=== PATIENT | male | born 1945 | race Caucasian/White ===

== ENCOUNTER 2017-06-15 10:13 | Day surgery (SDC) | payer MEDICARE ==
[~2017-06-15 10:13] MED LIST: AMOCLA875 PO; ASCO500 PO; ASPI81CH PO; BUPR75; CEPH500 PO; CIPR500; CIPR500 PO; Calcium +D & M1 EACH PO; DAYQUIL; DICMIS75EC; DIPATR PO; ETOD200; GLUCOSAMINE-CH1 EA16 PO; HYDACE5 PO; Hair, Skin & N1 EACH PO; LEVFLO500 PO; LEVSOD50 PO; LISI20 PO; MULVITMIND PO; NAPR220 PO; ONDA4 PO; OXYACE5T PO; PHENA100 PO; PROACE100; PROM25 PO; RXONDA4ODT MM; RXOXYACE PO; SYNTHROID; TAMS.4ER PO; TYLENOL
[2017-06-16 05:31] LABS: BASOPHILS ABSOLUTE AUTO 0.01 K/mm3 (0.00-0.23); BASOPHILS PERCENT AUTO 0 % (0-2); EOSINOPHILS PERCENT AUTO 0 % (0-6); Hemoglobin 13.3 g/dL (13.5-17.5); IMMATURE GRAN ABSOLUTE AUTO 0.09 K/mm3 (0.00-0.10); IMMATURE GRAN PERCENT AUTO 1 % (0-1); LYMPHOCYTES ABSOLUTE AUTO 1.51 K/mm3 (0.84-5.20); LYMPHOCYTES PERCENT AUTO 10 % (21-46); MONOCYTES ABSOLUTE AUTO 0.99 K/mm3 (0.16-1.47); MONOCYTES PERCENT AUTO 7 % (4-13); Mean Corpuscular HGB 30.2 pg (26.0-34.0); Mean Corpuscular HGB Conc 33.3 g/dL (31.5-36.5); Mean Corpuscular Volume 91 fL (80-100); Mean Platelet Volume 12.3 fL (9.1-12.4); NEUTROPHILS ABSOLUTE AUTO 11.99 K/mm3 (1.96-9.15); NEUTROPHILS PERCENT AUTO 82 % (41-73); Platelet Count 137 K/mm3 (150-400); RDW Coefficient Variation 12.4 % (11.7-14.2); RDW Standard Deviation 41.1 fL (35.1-46.3); White Blood Cell Count 14.59 K/mm3 (4.00-11.30)
[2017-06-16 05:57] LABS: Anion Gap 9 mmol/L (6-16); Blood Urea Nitrogen 29 mg/dL (8-24); Bun/Creatinine Ratio 23.8 (12.0-20.0); CO2, Blood 25 mmol/L (21-32); Calcium, Blood 8.4 mg/dL (8.5-10.1); Chloride, Blood 107 mmol/L (98-108); Creatinine, Blood 1.22 mg/dL (0.60-1.20); Glomerular Filtration Rate >60 (60-); Glucose, Blood 127 mg/dL (70-99); Magnesium, Blood 2.1 mg/dL (1.6-2.4); Potassium, Blood 4.9 mmol/L (3.5-5.5); Sodium, Blood 141 mmol/L (136-145)
[2017-06-16] MEDS ORDERED: ENOX40I SC ×2 (09:31→15:18)
[2017-06-16] MEDS ORDERED: PROM25 PO (09:31)
[2017-06-16] MEDS ORDERED: OXYC5 PO (09:31)
[2017-06-16] MEDS ORDERED: Percocet 5-3251 EACH PO (14:23)
== END 2017-06-16 15:49 | disposition home or self-care (01) ==
LOC: SURS 10:13 → ORSCMMR 10:13 → PRE IP 10:13 → EDSTATUS 14:30 → PRE IP 14:30 → SURS 17:19 → ORSCMMR 06-16 15:49
PROVIDERS: Orthopaedic Surgery
PROC: 0SRD0J9 Replacement of Left Knee Joint with Synthetic Substitute, Cemented, Open Approach (ICD-10-PCS; principal; 2017-06-15 14:30)
DX: M17.12 Unilateral primary osteoarthritis, left knee (principal); I10 Essential (primary) hypertension; E03.9 Hypothyroidism, unspecified; Z79.899 Other long term (current) drug therapy; Z79.82 Long term (current) use of aspirin; E66.01 Morbid (severe) obesity due to excess calories; Z68.35 Body mass index [BMI] 35.0-35.9, adult
CPT/HCPCS: 36415; 73560-LT; 80048; 82947; 83735; 85025; 86850; 86900; 86901; 88300; 97110; 97116; 97161; 97530; C1713; C1776; G8978; G8979; J0171; J0690; J0735; J1100; J1170; J1650; J1885; J2250; J2405; J2795; J3370; J7120

== ENCOUNTER → 2019-05-18 | Outpatient (CLI) | payer MEDICARE, OTHER ==
[~2019-05-18] MED LIST changes: +ENOX40I SC; +OXYC5 PO; +Percocet 5-3251 EACH PO
== END | disposition home or self-care (01) ==
LOC: LAB SHORT 10:52 → OLS 10:52
PROVIDERS: Internal Medicine
DX: Z00.01 Encounter for general adult medical examination with abnormal findings (principal)
CPT/HCPCS: 81050

== ENCOUNTER → 2020-10-07 | Outpatient (CLI) | payer MEDICARE, OTHER ==
[2020-10-07 16:24] LABS: BASOPHILS ABSOLUTE AUTO 0.04 K/mm3 (0.00-0.23); BASOPHILS PERCENT AUTO 1 % (0-2); EOSINOPHILS ABSOLUTE AUTO 0.31 K/mm3 (0.00-0.68); EOSINOPHILS PERCENT AUTO 4 % (0-6); Hematocrit 47.2 % (37.0-53.0); Hemoglobin 15.7 g/dL (13.5-17.5); IMMATURE GRAN ABSOLUTE AUTO 0.02 K/mm3 (0.00-0.10); IMMATURE GRAN PERCENT AUTO 0 % (0-1); LYMPHOCYTES ABSOLUTE AUTO 1.84 K/mm3 (0.84-5.20); LYMPHOCYTES PERCENT AUTO 21 % (21-46); MONOCYTES ABSOLUTE AUTO 0.58 K/mm3 (0.16-1.47); MONOCYTES PERCENT AUTO 7 % (4-13); Mean Corpuscular HGB 30.6 pg (26.0-34.0); Mean Corpuscular HGB Conc 33.3 g/dL (31.5-36.5); Mean Corpuscular Volume 92 fL (80-100); Mean Platelet Volume 11.6 fL (9.1-12.4); NEUTROPHILS ABSOLUTE AUTO 5.81 K/mm3 (1.96-9.15); NEUTROPHILS PERCENT AUTO 68 % (41-73); Platelet Count 188 K/mm3 (150-400); RDW Coefficient Variation 12.6 % (11.7-14.2); RDW Standard Deviation 42.3 fL (35.1-46.3); Red Blood Cell Count 5.13 M/mm3 (4.30-5.90)
[2020-10-07 16:36] LABS: Albumin, Blood 3.8 g/dL (3.4-5.0); Albumin/Globulin Ratio 1.2 (0.8-1.8); Bilirubin, Total 0.3 mg/dL (0.1-1.0); Calcium, Blood 9.1 mg/dL (8.5-10.1); Creatinine, Blood 1.27 mg/dL (0.60-1.20); Globulin, Blood 3.3 g/dL (2.2-4.0); Potassium, Blood 4.2 mmol/L (3.5-5.5); Total Protein, Blood 7.1 g/dL (6.4-8.2)
== END | disposition home or self-care (01) ==
LOC: LAB SHORT 16:21 → LAB 16:21
PROVIDERS: Physician Assistant
DX: R10.32 Left lower quadrant pain (principal)
CPT/HCPCS: 80053; 85025

== ENCOUNTER → 2021-03-31 | Outpatient (CLI) | payer MEDICARE, OTHER ==
[2021-03-31 15:07] LABS: Adenovirus F 40/41 Not Detected (NOT DETECT); Astrovirus Not Detected (NOT DETECT); Campylobacter Sp Not Detected (NOT DETECT); Cryptosporidium Not Detected (NOT DETECT); Cyclospora Cayetanensis Not Detected (NOT DETECT); E. Coli O157 Not Detected (NOT DETECT); Entamoeba Histolytica Not Detected (NOT DETECT); Enteroaggregative E. coli-EAEC Not Detected (NOT DETECT); Enteropathogenic E. coli-EPEC Not Detected (NOT DETECT); Enterotoxigenic E. coli-ETEC Not Detected (NOT DETECT); Giardia Lamblia Not Detected (NOT DETECT); Norovirus GI/GII Not Detected (NOT DETECT); Plesiomonas Shigelloides Not Detected (NOT DETECT); Rotavirus A Not Detected (NOT DETECT); Salmonella Sp Not Detected (NOT DETECT); Sapovirus Not Detected (NOT DETECT); Shiga Toxin-prod E. coli-STEC Not Detected (NOT DETECT); Shigella/Enteroin E. coli-EIEC Not Detected (NOT DETECT); Vibrio Cholerae Not Detected (NOT DETECT); Vibrio Sp Not Detected (NOT DETECT); Yersinia Enterocolitica Not Detected (NOT DETECT)
== END | disposition home or self-care (01) ==
LOC: LAB SHORT 07:45 → LAB 07:45
PROVIDERS: Physician Assistant Surgical
DX: R19.7 Diarrhea, unspecified (principal)
CPT/HCPCS: 0097U

== ENCOUNTER 2021-06-04 06:23 | Day surgery (SDC) | payer MEDICARE, OTHER ==
[~2021-06-04] VITALS: Ht 177.8 cm; Wt 108.7 kg
--- NOTE | 2021-06-04 08:17 | NUR ---
06/04/21 0817 Tahir Jiang PATIENT DETERMINED TO BE ASA APPROPRIATE FOR PROPOFOL SEDATION PRIOR TO START OF PROCEDURE BY DR. ALFONSO 3-LEAD EKG REVIEWED WITH PHYSICIAN PRIOR TO START OF PROCEDURE. Patient to ENDO 1. History, Chart, Medications and Allergies reviewed before start of procedure. MONITOR INTACT WITH CONTINUOUS PULSE OXIMETRY AND INTERMITTENT BP. O2 VIA N/C INTACT THROUGHOUT SEDATION/PROCEDURE.
--- NOTE | 2021-06-04 09:06 | NUR ---
PT TOLERATING PO FLUIDS AND SOLIDS. PT DENIES PAIN, N/V. RIDE INFORMED OF STATUS.
--- NOTE | 2021-06-04 09:33 | NUR ---
Discharge instructions reviewed with patient. Patient verbalizes understanding. Copy given to patient to take home. Patient States Post-Procedure ride home has been arranged. Discharged via wheelchair to private car for ride home.
== END 2021-06-04 09:36 | disposition home or self-care (01) ==
LOC: ORSCMMR 06:23 → ORD 08:00 → ORSCMMR 08:00
PROVIDERS: Internal Medicine Gastroenterology
PROC: 0DBK8ZX Excision of Ascending Colon, Via Natural or Artificial Opening Endoscopic, Diagnostic (ICD-10-PCS; principal; 2021-06-04 08:00)
PROC: 0DBL8ZX Excision of Transverse Colon, Via Natural or Artificial Opening Endoscopic, Diagnostic (ICD-10-PCS; principal; 2021-06-04 08:00)
PROC: 0DBH8ZX Excision of Cecum, Via Natural or Artificial Opening Endoscopic, Diagnostic (ICD-10-PCS; principal; 2021-06-04 08:00)
PROC: 0DBE8ZX Excision of Large Intestine, Via Natural or Artificial Opening Endoscopic, Diagnostic (ICD-10-PCS; principal; 2021-06-04 08:00)
DX: R19.7 Diarrhea, unspecified (principal); D12.3 Benign neoplasm of transverse colon; D12.0 Benign neoplasm of cecum; D12.2 Benign neoplasm of ascending colon; K57.30 Diverticulosis of large intestine without perforation or abscess without bleeding; K52.89 Other specified noninfective gastroenteritis and colitis; K75.81 Nonalcoholic steatohepatitis (NASH); D51.0 Vitamin B12 deficiency anemia due to intrinsic factor deficiency; E66.9 Obesity, unspecified; Z68.35 Body mass index [BMI] 35.0-35.9, adult; Z79.899 Other long term (current) drug therapy
CPT/HCPCS: 88305; 88313; J2704; J7120

== ENCOUNTER 2021-08-10 09:07 | Emergency (ER) | payer MEDICARE ==
[~2021-08-10] VITALS: Ht 177.8 cm; Wt 108.9 kg
[~2021-08-10 09:07] MED LIST changes: +EUTHYROX175 MCG PO; -LEVSOD50 PO
[2021-08-10 10:41] LABS: BASOPHILS ABSOLUTE AUTO 0.04 K/mm3 (0.00-0.23); BASOPHILS PERCENT AUTO 0 % (0-2); EOSINOPHILS ABSOLUTE AUTO 0.04 K/mm3 (0.00-0.68); EOSINOPHILS PERCENT AUTO 0 % (0-6); Hematocrit 51.6 % (37.0-53.0); Hemoglobin 17.6 g/dL (13.5-17.5); IMMATURE GRAN ABSOLUTE AUTO 0.06 K/mm3 (0.00-0.10); IMMATURE GRAN PERCENT AUTO 1 % (0-1); LYMPHOCYTES ABSOLUTE AUTO 1.72 K/mm3 (0.84-5.20); LYMPHOCYTES PERCENT AUTO 14 % (21-46); MONOCYTES ABSOLUTE AUTO 0.58 K/mm3 (0.16-1.47); MONOCYTES PERCENT AUTO 5 % (4-13); Mean Corpuscular HGB 30.5 pg (26.0-34.0); Mean Corpuscular HGB Conc 34.1 g/dL (31.5-36.5); Mean Corpuscular Volume 89 fL (80-100); Mean Platelet Volume 11.2 fL (9.1-12.4); NEUTROPHILS ABSOLUTE AUTO 9.97 K/mm3 (1.96-9.15); NEUTROPHILS PERCENT AUTO 80 % (41-73); Platelet Count 193 K/mm3 (150-400); RDW Coefficient Variation 12.7 % (11.7-14.2); RDW Standard Deviation 41.3 fL (35.1-46.3); Red Blood Cell Count 5.77 M/mm3 (4.30-5.90); White Blood Cell Count 12.41 K/mm3 (4.00-11.30)
[2021-08-10 11:09] LABS: Alanine Aminotransfer (ALT/SGP 26 U/L (12-78); Albumin, Blood 3.8 g/dL (3.4-5.0); Alk Phos 112 U/L (50-136); Anion Gap 9 mmol/L (6-16); Aspartate Aminotrans (AST/SGOT 20 U/L (12-37); Bilirubin, Total 0.9 mg/dL (0.1-1.0); Blood Urea Nitrogen 19 mg/dL (8-24); CO2, Blood 25 mmol/L (21-32); Calcium, Blood 9.6 mg/dL (8.5-10.1); Chloride, Blood 106 mmol/L (98-108); Creatinine, Blood 0.95 mg/dL (0.60-1.20); Globulin, Blood 3.8 g/dL (2.2-4.0); Glomerular Filtration Rate >60 (60-); Glucose, Blood 160 mg/dL (70-99); Potassium, Blood 3.9 mmol/L (3.5-5.5); Sodium, Blood 140 mmol/L (136-145); Total Protein, Blood 7.6 g/dL (6.4-8.2)
== END 2021-08-10 13:45 | disposition home or self-care (01) ==
LOC: ER 09:07
PROVIDERS: Physician Assistant
DX: R42 Dizziness and giddiness (principal); I10 Essential (primary) hypertension; Z79.899 Other long term (current) drug therapy; Z88.1 Allergy status to other antibiotic agents; Z88.5 Allergy status to narcotic agent; Z91.09 Other allergy status, other than to drugs and biological substances
CPT/HCPCS: 36415; 70450; 80053; 85025; A9270; J1200; J2405; J7030

== ENCOUNTER 2021-08-13 16:59 | Inpatient (IN) | payer MEDICARE ==
[~2021-08-13] VITALS: Ht 177.8 cm; Wt 94.0 kg
[2021-08-13 18:42] LABS: Alanine Aminotransfer (ALT/SGP 97 U/L (12-78); Albumin, Blood 3.3 g/dL (3.4-5.0); Albumin/Globulin Ratio 0.9 (0.8-1.8); Alk Phos 96 U/L (50-136); Anion Gap 8 mmol/L (6-16); Aspartate Aminotrans (AST/SGOT 57 U/L (12-37); Bilirubin, Total 1.5 mg/dL (0.1-1.0); Blood Urea Nitrogen 22 mg/dL (8-24); Bun/Creatinine Ratio 19.5 (12.0-20.0); CO2, Blood 25 mmol/L (21-32); Calcium, Blood 9.1 mg/dL (8.5-10.1); Chloride, Blood 104 mmol/L (98-108); Creatinine, Blood 1.13 mg/dL (0.60-1.20); Globulin, Blood 3.5 g/dL (2.2-4.0); Glomerular Filtration Rate >60 (60-); Glucose, Blood 107 mg/dL (70-99); Potassium, Blood 3.8 mmol/L (3.5-5.5); Sodium, Blood 137 mmol/L (136-145); Total Protein, Blood 6.8 g/dL (6.4-8.2)
[2021-08-13 19:24] LABS: Influenza A, PCR NEGATIVE (NEGATIVE); Influenza B, PCR NEGATIVE (NEGATIVE); Resp Syncytial Virus, PCR NEGATIVE (NEGATIVE); SARS-Cov-2 (COVID-19) PCR, MMC NEGATIVE (NEGATIVE)
[2021-08-13 21:01] LABS: BASOPHILS ABSOLUTE AUTO 0.06 K/mm3 (0.00-0.23); BASOPHILS PERCENT AUTO 1 % (0-2); EOSINOPHILS ABSOLUTE AUTO 0.13 K/mm3 (0.00-0.68); EOSINOPHILS PERCENT AUTO 1 % (0-6); Hematocrit 48.2 % (37.0-53.0); Hemoglobin 16.2 g/dL (13.5-17.5); IMMATURE GRAN ABSOLUTE AUTO 0.04 K/mm3 (0.00-0.10); IMMATURE GRAN PERCENT AUTO 0 % (0-1); LYMPHOCYTES PERCENT AUTO 13 % (21-46); MONOCYTES ABSOLUTE AUTO 1.02 K/mm3 (0.16-1.47); MONOCYTES PERCENT AUTO 9 % (4-13); Mean Corpuscular HGB 30.5 pg (26.0-34.0); Mean Corpuscular HGB Conc 33.6 g/dL (31.5-36.5); Mean Corpuscular Volume 91 fL (80-100); Mean Platelet Volume 11.5 fL (9.1-12.4); NEUTROPHILS ABSOLUTE AUTO 9.24 K/mm3 (1.96-9.15); NEUTROPHILS PERCENT AUTO 77 % (41-73); Platelet Count 175 K/mm3 (150-400); RDW Coefficient Variation 12.4 % (11.7-14.2); RDW Standard Deviation 41.1 fL (35.1-46.3); Red Blood Cell Count 5.31 M/mm3 (4.30-5.90); White Blood Cell Count 11.99 K/mm3 (4.00-11.30)
--- NOTE | 2021-08-13 23:25 | NUR ---
REPORT RECIEVED FROM YONATHAN HODGSON RN AND AWAITING PT T/F TO ROOM 310
[2021-08-14 04:44] LABS: BASOPHILS ABSOLUTE AUTO 0.04 K/mm3 (0.00-0.23); BASOPHILS PERCENT AUTO 0 % (0-2); EOSINOPHILS ABSOLUTE AUTO 0.17 K/mm3 (0.00-0.68); EOSINOPHILS PERCENT AUTO 2 % (0-6); Hematocrit 48.5 % (37.0-53.0); Hemoglobin 16.5 g/dL (13.5-17.5); IMMATURE GRAN ABSOLUTE AUTO 0.03 K/mm3 (0.00-0.10); IMMATURE GRAN PERCENT AUTO 0 % (0-1); LYMPHOCYTES ABSOLUTE AUTO 1.56 K/mm3 (0.84-5.20); LYMPHOCYTES PERCENT AUTO 16 % (21-46); MONOCYTES ABSOLUTE AUTO 1.02 K/mm3 (0.16-1.47); MONOCYTES PERCENT AUTO 11 % (4-13); Mean Corpuscular HGB 30.6 pg (26.0-34.0); Mean Corpuscular Volume 90 fL (80-100); Mean Platelet Volume 11.4 fL (9.1-12.4); NEUTROPHILS PERCENT AUTO 71 % (41-73); Platelet Count 172 K/mm3 (150-400); RDW Coefficient Variation 12.5 % (11.7-14.2); RDW Standard Deviation 41.3 fL (35.1-46.3); White Blood Cell Count 9.72 K/mm3 (4.00-11.30)
[2021-08-14 05:04] LABS: Alanine Aminotransfer (ALT/SGP 88 U/L (12-78); Albumin, Blood 3.1 g/dL (3.4-5.0); Alk Phos 91 U/L (50-136); Anion Gap 7 mmol/L (6-16); Aspartate Aminotrans (AST/SGOT 44 U/L (12-37); Bilirubin, Total 1.3 mg/dL (0.1-1.0); Blood Urea Nitrogen 22 mg/dL (8-24); Bun/Creatinine Ratio 20.6 (12.0-20.0); CO2, Blood 28 mmol/L (21-32); Calcium, Blood 9.1 mg/dL (8.5-10.1); Chloride, Blood 105 mmol/L (98-108); Creatinine, Blood 1.07 mg/dL (0.60-1.20); Globulin, Blood 3.2 g/dL (2.2-4.0); Glomerular Filtration Rate >60 (60-); Glucose, Blood 98 mg/dL (70-99); Potassium, Blood 3.4 mmol/L (3.5-5.5); Sodium, Blood 140 mmol/L (136-145); Total Protein, Blood 6.3 g/dL (6.4-8.2)
[2021-08-14 10:55] LABS: CHOL/HDL RATIO 4.6; Cholesterol 197 mg/dL (50-200); HDL Cholesterol 43 mg/dL (>39); LDL/HDL RATIO 3.1; Low Density Lipoprotein Chol 131 mg/dL (0-110); Triglycerides 114 mg/dL (30-160); Very Low Density Lipoprot Chol 22 mg/dL (6-32)
--- NOTE | 2021-08-14 14:05 | NUR ---
Spiritual Care Visit. ...per Pt. request. Pt. is sitting up in bed and welcomes my visit. Pt. is unsettled because he is still somewhat dizzy but doesn't know why he collapsed at home. Nurse Provided Pt. ensure, and he seems to be tolerating (and enjoying) it. Develop rapport and listen empathetically during a life review. Pt. displays evidence of momentary frustration when he realizes he cannot move like he is accustomed. Spouse and Pts. son arrive. After introductions we prayed together. Pt. displayed evidence of enjoying the company of family. Pt. and family verbalize gratitude for the spiritual care visit.
--- NOTE | 2021-08-14 16:46 | NUR ---
PATIENT IS ALERT AND ORIENTED TO SELF ONLY. PATIENT IS A STAND PIVOT TO COMMODE. HASNT GOTTEN OUT OF BED FOR ME THIS SHIFT. PATIENT USES URINAL WITH ASSISTANCE. PATIENT IS COMPLAINING OF DIZZINESS, GIVEN PRN FOR. PATIENT HAS HTN AND GIVEN PRN FOR THAT. PATIENT HAS BEEN RESTING MOST OF SHIFT. PATIENT ON TELE. VITAL SIGNS REVIEWED. BED IN LOCKED AND LOWEST POSITION. CALL LIGHT IN PLACE. WILL MONITOR UNTIL SHIFT CHANGE.
--- NOTE | 2021-08-15 05:58 | NUR ---
SHIFT SUMMARY: A&OX2, FORGETFUL. INTERMITTENT DIZZINESS. IMPULSIVITY. TELE = NSR 60S. RASH NOTED TO TORSO AND BUE. SCATTERED BRUISING. PERSISTANT HTN ON NOC, CONTACTED AND NEW ORDERS OBTAINED, IV HYDRALAZINE ADMINSITERED. WCTM. GETS FIDGETY WHEN HE NEEDS TO URINATE, WILL USE URINAL WITH PROMPTING. WCTM.
[2021-08-15 11:57] LABS: Anion Gap 10 mmol/L (6-16); Blood Urea Nitrogen 20 mg/dL (8-24); Bun/Creatinine Ratio 21.3 (12.0-20.0); CO2, Blood 25 mmol/L (21-32); Calcium, Blood 9.3 mg/dL (8.5-10.1); Chloride, Blood 104 mmol/L (98-108); Creatinine, Blood 0.94 mg/dL (0.60-1.20); Glomerular Filtration Rate >60 (60-); Glucose, Blood 151 mg/dL (70-99); Potassium, Blood 3.2 mmol/L (3.5-5.5); Sodium, Blood 139 mmol/L (136-145)
--- NOTE | 2021-08-15 16:23 | NUR ---
SHIFT SUMMARY PATIENT IS ALERT AND ORIENTED TO SELF AND TO FAMILY ONLY. PATIENT IS CONFUSED AND HAS TAKEN TELE BOX OFF ONCE THIS SHIFT. PATIENT HAS HAD PERSISTANT HIGH B/P, PRN HYDRALAZINE GIVEN ONCE THIS SHIFT. PATIENT HAS NOT GOTTEN OUT OF BED AND RESTED MOST OF SHIFT IN BED. FAMILY HAS BEEN IN MOST OF DAY WITH PATIENT. NO ACUTE EVENTS THIS SHIFT. VITAL SIGNS REVIEWED. CALL LIGHT IN PLACE. BED ALARM ON. BED IN LOWEST AND LOCKED POSITION. WILL MONITOR UNTIL NOC SHIFT.
--- NOTE | 2021-08-16 06:03 | NUR ---
SHIFT SUMMARY: NO SIGNIFICANT EVENTS ON NOC. PATIENT SLEPT WELL THROUGH THE SHIFT. TELE NSR 60S. DENIED DIZZINES THIS SHIFT.
[2021-08-16 10:06] LABS: BASOPHILS ABSOLUTE AUTO 0.03 K/mm3 (0.00-0.23); BASOPHILS PERCENT AUTO 0 % (0-2); EOSINOPHILS ABSOLUTE AUTO 0.09 K/mm3 (0.00-0.68); EOSINOPHILS PERCENT AUTO 1 % (0-6); Hematocrit 49.4 % (37.0-53.0); Hemoglobin 16.9 g/dL (13.5-17.5); IMMATURE GRAN ABSOLUTE AUTO 0.07 K/mm3 (0.00-0.10); IMMATURE GRAN PERCENT AUTO 1 % (0-1); LYMPHOCYTES PERCENT AUTO 10 % (21-46); MONOCYTES ABSOLUTE AUTO 0.86 K/mm3 (0.16-1.47); MONOCYTES PERCENT AUTO 7 % (4-13); Mean Corpuscular HGB Conc 34.2 g/dL (31.5-36.5); Mean Corpuscular Volume 91 fL (80-100); Mean Platelet Volume 11.6 fL (9.1-12.4); NEUTROPHILS ABSOLUTE AUTO 10.63 K/mm3 (1.96-9.15); NEUTROPHILS PERCENT AUTO 82 % (41-73); Platelet Count 191 K/mm3 (150-400); RDW Coefficient Variation 12.9 % (11.7-14.2); RDW Standard Deviation 42.2 fL (35.1-46.3); Red Blood Cell Count 5.46 M/mm3 (4.30-5.90); White Blood Cell Count 12.98 K/mm3 (4.00-11.30)
--- NOTE | 2021-08-16 10:21 | NUR ---
NURSE NOTE. PATIENTS FAMILY ALERTED THIS RN TO PATIENTS CHANGE IN CONDITION. DID ASSESSMENT, CHECKED VITALS. ALERTED CHARGE NURSE OF WHOM TALKED WITH FAMILY. THIS RN CALLED THE ATTENDING DR WHO GAVE ORDERS. THIS RN CARRIED OUT DR ORDERS. MONITORING PATIENT.
[2021-08-16 10:23] LABS: Anion Gap 7 mmol/L (6-16); Blood Urea Nitrogen 20 mg/dL (8-24); Bun/Creatinine Ratio 20.4 (12.0-20.0); CO2, Blood 25 mmol/L (21-32); Calcium, Blood 9.2 mg/dL (8.5-10.1); Chloride, Blood 105 mmol/L (98-108); Creatinine, Blood 0.98 mg/dL (0.60-1.20); Glomerular Filtration Rate >60 (60-); Glucose, Blood 172 mg/dL (70-99); Phosphorus, Blood 2.5 mg/dL (2.5-4.9); Potassium, Blood 3.1 mmol/L (3.5-5.5); Sodium, Blood 137 mmol/L (136-145)
--- NOTE | 2021-08-16 18:30 | NUR ---
SHIFT SUMMARY PATIENT IS ALERT AND ORIENTED TO SELF AND FAMILY ONLY. PATIENT HAS BEEN INCONTINENT OF STOOL AND USES URINAL WITH ASSISTANCE. PATIENT HAS HIGH BP IN BEGINNING OF SHIFT. GIVEN PRN HYDRALAZINE WHICH WORKED BUT PATIENT WAS SYMPTOMATIC OF BP DROP. DR GAVE ORDERS FOR 250ML BOLUS WHICH WAS EFFECTIVE. NO OTHER ORDERS AT THIS TIME. PATIENT WAS GIVEN TYLENOL PRN FOR PAIN. PATIENT IS RESTING COMFORTABLY IN BED. BED IN LOCKED AND LOWEST POSITION. CALL LIGHT ON. WILL REPORT TO ONCOMING RN.
[2021-08-17 04:44] LABS: BASOPHILS ABSOLUTE AUTO 0.03 K/mm3 (0.00-0.23); BASOPHILS PERCENT AUTO 0 % (0-2); EOSINOPHILS ABSOLUTE AUTO 0.08 K/mm3 (0.00-0.68); EOSINOPHILS PERCENT AUTO 1 % (0-6); Hematocrit 46.7 % (37.0-53.0); Hemoglobin 16.1 g/dL (13.5-17.5); IMMATURE GRAN ABSOLUTE AUTO 0.06 K/mm3 (0.00-0.10); IMMATURE GRAN PERCENT AUTO 0 % (0-1); LYMPHOCYTES ABSOLUTE AUTO 1.58 K/mm3 (0.84-5.20); LYMPHOCYTES PERCENT AUTO 11 % (21-46); MONOCYTES ABSOLUTE AUTO 1.31 K/mm3 (0.16-1.47); MONOCYTES PERCENT AUTO 9 % (4-13); Mean Corpuscular HGB 30.9 pg (26.0-34.0); Mean Corpuscular HGB Conc 34.5 g/dL (31.5-36.5); Mean Corpuscular Volume 90 fL (80-100); Mean Platelet Volume 11.7 fL (9.1-12.4); NEUTROPHILS PERCENT AUTO 79 % (41-73); Platelet Count 192 K/mm3 (150-400); RDW Standard Deviation 42.5 fL (35.1-46.3); Red Blood Cell Count 5.21 M/mm3 (4.30-5.90); White Blood Cell Count 14.46 K/mm3 (4.00-11.30)
[2021-08-17 05:05] LABS: Albumin, Blood 2.9 g/dL (3.4-5.0); Anion Gap 6 mmol/L (6-16); Blood Urea Nitrogen 21 mg/dL (8-24); Bun/Creatinine Ratio 19.3 (12.0-20.0); CO2, Blood 26 mmol/L (21-32); Calcium, Blood 9.3 mg/dL (8.5-10.1); Chloride, Blood 106 mmol/L (98-108); Creatinine, Blood 1.09 mg/dL (0.60-1.20); Glomerular Filtration Rate >60 (60-); Glucose, Blood 114 mg/dL (70-99); Phosphorus, Blood 3.4 mg/dL (2.5-4.9); Potassium, Blood 3.4 mmol/L (3.5-5.5); Sodium, Blood 138 mmol/L (136-145)
--- NOTE | 2021-08-17 06:07 | NUR ---
SHIFT SUMMARY: NO SIGNIFICNAT EVENTS ON NOC. PATIENT SEEMS TO BE DECONDITIONING. SOME DIFFICULTY FOLLOWING COMMANDS. RIGHT SIDED WEAKNESS WITH FACIAL ASYMETRY. RIGHT MOUTH DROOP. PATIENT HAD 2 INCONTINENT MUSHY STOOLS. ALARM SOUNDED PATIENT SITTING AT EDGE OF BED WITH FEET ON THE GROUND. HE REQUESTED TO USE BATHROOM. STOOD WITH WALKER ANS ASSISTED WITH URNINAL. DIFFICUTLY WITH MOVING FEET. LEFT FOOT VERY SMALL STEPS WITH CONSTANT QUES. RIGHT FOOT HE CANNOT JUKEBOX OPERATOR OFF THE GROUND. INTERMITTENT DIZZINESS. PAIN TREATED PER EMAR.
--- NOTE | 2021-08-17 17:54 | NUR ---
SHIFT SUMMARY PATIENT IS ALERT AND ORIENTED TO SELF AND FAMILY. PATIENT WILL USE THE URINAL WITH ASSISTANCE. INCONINENT OF LOOSE STOOL TODAY. PATIENT WORKED WITH OCCUPATIONAL THERAPY THIS SHIFT. PATIENT HAS A HARD TIME MAKING NEEDS KNOWN. BLOTCHY RASH PRESENT WITH REACTION TO TAPE/ADHESIVE. UP TO THE RECLINER WITH A 2 MAX ASSIST FWW AND GAIT BELT. NO EVENTS WITH BLOOD PRESSURES THIS SHIFT. PATIENT WENT FOR AN MRI. MEDS CRUSHED IN Gera-IT WORK GREAT. NO ACUTE CHANGES. VSS. PATIENT WENT FOR MRI, DID NOT TOLERATE WELL EVEN WITH ATVIAN PRIOR. PATIENT IS BACK IN ROOM WITH FAMILY AT BEDSIDE. CALL LIGHT WITHIN REACH.
[2021-08-18 05:13] LABS: BASOPHILS ABSOLUTE AUTO 0.05 K/mm3 (0.00-0.23); BASOPHILS PERCENT AUTO 0 % (0-2); EOSINOPHILS ABSOLUTE AUTO 0.23 K/mm3 (0.00-0.68); EOSINOPHILS PERCENT AUTO 2 % (0-6); Hematocrit 45.8 % (37.0-53.0); Hemoglobin 16.1 g/dL (13.5-17.5); IMMATURE GRAN ABSOLUTE AUTO 0.16 K/mm3 (0.00-0.10); IMMATURE GRAN PERCENT AUTO 1 % (0-1); LYMPHOCYTES ABSOLUTE AUTO 2.09 K/mm3 (0.84-5.20); LYMPHOCYTES PERCENT AUTO 16 % (21-46); MONOCYTES ABSOLUTE AUTO 1.54 K/mm3 (0.16-1.47); MONOCYTES PERCENT AUTO 12 % (4-13); Mean Corpuscular HGB 30.8 pg (26.0-34.0); Mean Corpuscular HGB Conc 35.2 g/dL (31.5-36.5); Mean Corpuscular Volume 88 fL (80-100); Mean Platelet Volume 12.2 fL (9.1-12.4); NEUTROPHILS ABSOLUTE AUTO 8.64 K/mm3 (1.96-9.15); NEUTROPHILS PERCENT AUTO 68 % (41-73); Platelet Count 128 K/mm3 (150-400); RDW Standard Deviation 41.6 fL (35.1-46.3); Red Blood Cell Count 5.23 M/mm3 (4.30-5.90); White Blood Cell Count 12.71 K/mm3 (4.00-11.30)
--- NOTE | 2021-08-18 05:28 | NUR ---
SUMMARY: PT A/O TO SELF, FAMILY AND SURROUNDINGS. SPEECH IS SLIGHTLY GARBLED AT TIMES AND R.FACIAL DROOP NOTED BUT PT IS ABLE TO SPECIFY NEEDS AND TOLERATES DIET RX'D. R.SIDE WEAKNESS PERSISTS AND NEURO OBS REMAIN STABLE. TURN SCHEDULE MAINTAINED AND 2P MAX ASSIST OOB. HE REMAINS NSR W/PVC'S ON TELEMETRY AND IS ASYMPOTMATIC OF CARDIAC DISTRESS. NO PRN BP MEDS REQUIRED. ATTENDS CHANGED PRN FOR LOOSE STOOLS AND URINAL ASSIST PROVIDED PRN. NO ACUTE CHANGES, VSS/AFEBRILE. WCTM AND REPORT TO DAY RN.
[2021-08-18 05:39] LABS: Albumin, Blood 2.7 g/dL (3.4-5.0); Anion Gap 8 mmol/L (6-16); Blood Urea Nitrogen 22 mg/dL (8-24); Bun/Creatinine Ratio 23.1 (12.0-20.0); CO2, Blood 23 mmol/L (21-32); Calcium, Blood 8.9 mg/dL (8.5-10.1); Chloride, Blood 108 mmol/L (98-108); Creatinine, Blood 0.95 mg/dL (0.60-1.20); Glomerular Filtration Rate >60 (60-); Glucose, Blood 94 mg/dL (70-99); Phosphorus, Blood 2.9 mg/dL (2.5-4.9); Potassium, Blood 3.4 mmol/L (3.5-5.5); Sodium, Blood 139 mmol/L (136-145)
[2021-08-18] MEDS ORDERED: ACET325 PO (12:58)
[2021-08-18] MEDS ORDERED: ASPI81CH PO (12:58)
[2021-08-18] MEDS ORDERED: ATOR80 PO (12:59)
[2021-08-18] MEDS ORDERED: MECL25 PO (12:59)
[2021-08-18] MEDS ORDERED: METO25 PO (12:59)
[2021-08-18 13:40] LABS: Influenza A, PCR NEGATIVE (NEGATIVE); Influenza B, PCR NEGATIVE (NEGATIVE); Resp Syncytial Virus, PCR NEGATIVE (NEGATIVE); SARS-Cov-2 (COVID-19) PCR, MMC NEGATIVE (NEGATIVE)
--- NOTE | 2021-08-18 16:45 | NUR ---
PATIENT D/C'D TO [facility] VIA W/C TRANSPORT. REPORT CALLED TO [facility]. PACKET GIVEN TO TRANSCRIPTIONIST. FAMILY TO MEET PATIENT A THE FACILITY. PATIENT DENIES ANY FURTHER QUESTIONS OR CONCERNS.
== END 2021-08-18 16:52 | DRG 66 ==
LOC: ER 16:59 → MEDS 22:40
PROVIDERS: Emergency Medicine; Family Medicine; Student in an Organized Health Care Education/Training Program; ADMIT Internal Medicine
DX: I63.89 Other cerebral infarction (principal); I10 Essential (primary) hypertension; E03.9 Hypothyroidism, unspecified; E87.6 Hypokalemia; Z20.822 Contact with and (suspected) exposure to COVID-19; E78.5 Hyperlipidemia, unspecified; R27.0 Ataxia, unspecified; D69.6 Thrombocytopenia, unspecified; I65.03 Occlusion and stenosis of bilateral vertebral arteries; D72.828 Other elevated white blood cell count; K75.81 Nonalcoholic steatohepatitis (NASH); Z96.653 Presence of artificial knee joint, bilateral; Z98.890 Other specified postprocedural states; Z79.899 Other long term (current) drug therapy; I77.810 Thoracic aortic ectasia; E88.09 Other disorders of plasma-protein metabolism, not elsewhere classified; Z88.1 Allergy status to other antibiotic agents; Z88.8 Allergy status to other drugs, medicaments and biological substances; Z91.040 Latex allergy status
CPT/HCPCS: 0241U; 36415; 70450; 70496; 70498; 71045; 80048; 80053; 80061; 80069; 83735; 83880; 84145; 84484; 85025; 92610; 93005; 93010; 93306; 97110; 97112; 97162; 97166; 97530; 97535; 99285-25; A9270; J0360; J1650; J2060; J3480; J7030; J7040; Q9967

== ENCOUNTER → 2022-08-18 | Outpatient (CLI) | payer MEDICARE, OTHER ==
[~2022-08-18] MED LIST changes: +ACET325 PO; +ATOR80 PO; +MECL25 PO; +METO25 PO
== END | disposition home or self-care (01) ==
LOC: LAB SHORT 19:01 → LAB 19:01
DX: R31.9 Hematuria, unspecified (principal)
CPT/HCPCS: 87086

== ENCOUNTER → 2022-12-26 | Outpatient (CLI) | payer MEDICARE, OTHER ==
[2022-12-26 17:07] LABS: BASOPHILS ABSOLUTE AUTO 0.05 K/mm3 (0.00-0.23); BASOPHILS PERCENT AUTO 1 % (0-2); EOSINOPHILS ABSOLUTE AUTO 0.44 K/mm3 (0.00-0.68); EOSINOPHILS PERCENT AUTO 5 % (0-6); Hematocrit 43.5 % (37.0-53.0); Hemoglobin 14.5 g/dL (13.5-17.5); IMMATURE GRAN ABSOLUTE AUTO 0.02 K/mm3 (0.00-0.10); IMMATURE GRAN PERCENT AUTO 0 % (0-1); LYMPHOCYTES ABSOLUTE AUTO 1.87 K/mm3 (0.84-5.20); LYMPHOCYTES PERCENT AUTO 22 % (21-46); MONOCYTES ABSOLUTE AUTO 0.75 K/mm3 (0.16-1.47); MONOCYTES PERCENT AUTO 9 % (4-13); Mean Corpuscular HGB Conc 33.3 g/dL (31.5-36.5); Mean Corpuscular Volume 93 fL (80-100); Mean Platelet Volume 10.8 fL (9.1-12.4); NEUTROPHILS ABSOLUTE AUTO 5.58 K/mm3 (1.96-9.15); NEUTROPHILS PERCENT AUTO 64 % (41-73); Platelet Count 203 K/mm3 (150-400); RDW Coefficient Variation 13.1 % (11.7-14.2); RDW Standard Deviation 44.5 fL (35.1-46.3); Red Blood Cell Count 4.68 M/mm3 (4.30-5.90); White Blood Cell Count 8.71 K/mm3 (4.00-11.30)
[2022-12-26 17:20] LABS: Albumin, Blood 3.5 g/dL (3.4-5.0); Albumin/Globulin Ratio 0.9 (0.8-1.8); Bilirubin, Total 0.6 mg/dL (0.1-1.0); Bun/Creatinine Ratio 18.4 (12.0-20.0); Calcium, Blood 9.1 mg/dL (8.5-10.1); Creatinine, Blood 1.36 mg/dL (0.60-1.20); Potassium, Blood 3.4 mmol/L (3.5-5.5); Total Protein, Blood 7.5 g/dL (6.4-8.2)
== END | disposition home or self-care (01) ==
LOC: LAB SHORT 17:04 → LAB 17:04
PROVIDERS: Physician Assistant Surgical
DX: I82.439 Acute embolism and thrombosis of unspecified popliteal vein (principal)
CPT/HCPCS: 80053; 85025

== ENCOUNTER → 2023-06-13 | Outpatient (CLI) | payer MEDICARE, OTHER | END | disposition home or self-care (01) | LOC: LAB SHORT 12:38 | DX: R31.9 Hematuria, unspecified (principal) | CPT/HCPCS: 87086 ==

== ENCOUNTER 2024-02-19 13:25 | Observation (INO) | payer MEDICARE, OTHER ==
[~2024-02-19] VITALS: Ht 185.4 cm; Wt 108.9 kg
[~2024-02-19 13:25] MED LIST changes: +BENADRYL25 MG PO
[2024-02-19] MEDS ORDERED: NS 1,000 ML IV SCH ×2 (14:10→19:30)
[2024-02-19 14:30] LABS: BASOPHILS ABSOLUTE AUTO 0.01 K/mm3 (0.00-0.23); BASOPHILS PERCENT AUTO 0 % (0-2); EOSINOPHILS PERCENT AUTO 0 % (0-6); Hematocrit 45.6 % (37.0-53.0); Hemoglobin 15.2 g/dL (13.5-17.5); IMMATURE GRAN ABSOLUTE AUTO 0.04 K/mm3 (0.00-0.10); IMMATURE GRAN PERCENT AUTO 1 % (0-1); LYMPHOCYTES ABSOLUTE AUTO 0.53 K/mm3 (0.84-5.20); LYMPHOCYTES PERCENT AUTO 6 % (21-46); MONOCYTES ABSOLUTE AUTO 0.68 K/mm3 (0.16-1.47); MONOCYTES PERCENT AUTO 8 % (4-13); Mean Corpuscular HGB 29.9 pg (26.0-34.0); Mean Corpuscular HGB Conc 33.3 g/dL (31.5-36.5); Mean Corpuscular Volume 90 fL (80-100); Mean Platelet Volume 11.5 fL (9.1-12.4); NEUTROPHILS ABSOLUTE AUTO 7.54 K/mm3 (1.96-9.15); NEUTROPHILS PERCENT AUTO 86 % (41-73); Platelet Count 165 K/mm3 (150-400); RDW Coefficient Variation 13.8 % (11.7-14.2); RDW Standard Deviation 46.1 fL (35.1-46.3); Red Blood Cell Count 5.08 M/mm3 (4.30-5.90)
[2024-02-19 14:32] LABS: Albumin, Blood 3.2 g/dL (3.4-5.0); Albumin/Globulin Ratio 0.9 (0.8-1.8); Bilirubin, Total 0.6 mg/dL (0.1-1.0); Bun/Creatinine Ratio 19.1 (12.0-20.0); Calcium, Blood 8.9 mg/dL (8.5-10.1); Creatinine, Blood 1.15 mg/dL (0.60-1.20); Globulin, Blood 3.6 g/dL (2.2-4.0); Magnesium, Blood 1.8 mg/dL (1.6-2.4); Potassium, Blood 3.2 mmol/L (3.5-5.5); Total Protein, Blood 6.8 g/dL (6.4-8.2)
[2024-02-19] MEDS ORDERED: Piperacillin/Tazobactam Sod 4.5 GM in NS 100 ML IV ONE (14:45)
[2024-02-19 15:37] LABS: Influenza A, PCR NEGATIVE (NEGATIVE); Influenza B, PCR NEGATIVE (NEGATIVE); Resp Syncytial Virus, PCR NEGATIVE (NEGATIVE); SARS-Cov-2 (COVID-19) PCR, MMC NEGATIVE (NEGATIVE)
[2024-02-19 17:20] LABS: Source, Urine Straight Cath
[2024-02-19 17:28] LABS: Appearance, Urine Hazy (Clear); Bilirubin, Urine Neg (Neg); Blood, Urine 1+ (Neg); Color, Urine Yellow (P-Yellow); Glucose Qualitative, Urine Neg (Neg); Ketones, Urine Neg (Neg); Leukocyte Esterase, Urine 2+ (Neg); Nitrite, Urine Neg (Neg); Protein, Urine 3+ (Neg); Specific Gravity, Urine 1.025 (1.003-1.022); Urobilinogen, Urine NORM (Normal)
[2024-02-19 17:48] LABS: Amorphous Light (0-Heavy); Bacteria Few /hpf; Squamous Epithelial Cells Few /hpf (Few)
[2024-02-19] MEDS ORDERED: Ondansetron HCl 2 MG / ML 2ML Vial IV PRN (19:30)
[2024-02-19] MEDS ORDERED: Potassium Chl 20MEQ/Water100ML 100 ML IV SCH (19:40)
[2024-02-19] MEDS ORDERED: Aspirin 325 MG Tab PO ONE (20:00)
[2024-02-19] MEDS ORDERED: FINA5 PO (20:17)
[2024-02-19 20:18] LABS: U Amphetamine Screen Not Detected; U Barbituate Screen Not Detected; U Benzodiazapine Screen Not Detected; U Buprenorphine Screen Not Detected; U Cannabinoids Screen Not Detected; U Cocaine Screen Not Detected; U Methadone Screen Not Detected; U Methamphetamine Screen Not Detected; U Opiates Screen Not Detected; U Oxycodone Screen Not Detected; U Phencyclidine Screen Not Detected
[2024-02-19] MEDS ORDERED: FURO20 PO (20:18)
[2024-02-19] MEDS ORDERED: METO50 PO (20:19)
[2024-02-19] MEDS ORDERED: HYDRA25 PO (20:20)
[2024-02-19] MEDS ORDERED: FLU VACC TS2024-25(6MOS UP)/PF 45 MCG/0.5 ML SYRINGE IM ONE (22:00)
--- NOTE | 2024-02-19 22:10 | NUR ---
REPORT RECEIVED FROM EDMUNDO (LEAD BURNER HELPER) AND PT T/F TO ROOM 349 VIA [employer] AT 2155. HE'S VERY DROWSY BUT WAKEFUL TO VOICE AND SPEAKS IN WORKS TO ANSWER SOME YES/NO Q'S. PT IS SLOW TO RESPOND AND ABLE TO SPECIFY SOME NEEDS BUT BUT SEEMS PREDOMINANTLY CONFUSED OTHER THAN SELF. HE FALLS BACK TO SLEEP QUICKLY AND IS PROBABLE ASPIRATION RISK D/T AMS, DECREASED LOC AND SOME DIFFICULTY FOLLOWING INSTRUCTION. HE ATTEMPTS TO HELP W/REPOSITIONING BUT IS STIFF AND RIGID W/TURNING. BEDREST AND FALL RISK W/BED ALARM ON. PRESSURE SORE OBSERVED TO COCCYX THAT APPEARS TO BE OLDER AND IN VARIOUS STAGES OF HEALING. SEE PHOTOS FOR DETAILS. CLEANSED W/SKINTEGRITY AND MEPILEX APPLIED. FLOATED ON PILLOWS. GROIN AND LISA AREA ARE RED AND RASHY. CONDOM CATH AND CREAM APPLIED FOR INCONTINENCE AND SBD PREVENTION FROM MOISTURE. KRIDER AND CONTINUOUS NS INFUSING. PT REFUSED FLU VAC AT THIS TIME. WCTM CLOSELY AND MEDICATE PER EMAR.
[2024-02-19 22:45] VITALS: BP 145/78
[2024-02-20] MEDS ORDERED: Piperacillin/Tazobactam Sod 3.375 GM in NS 100 ML IV SCH
[2024-02-20 04:48] VITALS: BP 166/82
[2024-02-20 06:13] LABS: BASOPHILS ABSOLUTE AUTO 0.03 K/mm3 (0.00-0.23); BASOPHILS PERCENT AUTO 0 % (0-2); EOSINOPHILS PERCENT AUTO 0 % (0-6); Hematocrit 46.2 % (37.0-53.0); Hemoglobin 15.3 g/dL (13.5-17.5); IMMATURE GRAN ABSOLUTE AUTO 0.07 K/mm3 (0.00-0.10); IMMATURE GRAN PERCENT AUTO 1 % (0-1); LYMPHOCYTES ABSOLUTE AUTO 2.21 K/mm3 (0.84-5.20); LYMPHOCYTES PERCENT AUTO 23 % (21-46); MONOCYTES PERCENT AUTO 14 % (4-13); Mean Corpuscular HGB 29.9 pg (26.0-34.0); Mean Corpuscular HGB Conc 33.1 g/dL (31.5-36.5); Mean Corpuscular Volume 90 fL (80-100); NEUTROPHILS PERCENT AUTO 63 % (41-73); Platelet Count 141 K/mm3 (150-400); RDW Coefficient Variation 14.1 % (11.7-14.2); RDW Standard Deviation 46.8 fL (35.1-46.3); Red Blood Cell Count 5.12 M/mm3 (4.30-5.90); White Blood Cell Count 9.61 K/mm3 (4.00-11.30)
[2024-02-20 06:23] LABS: Albumin, Blood 2.9 g/dL (3.4-5.0); Albumin/Globulin Ratio 0.9 (0.8-1.8); Bilirubin, Total 0.6 mg/dL (0.1-1.0); Bun/Creatinine Ratio 15.5 (12.0-20.0); Calcium, Blood 8.2 mg/dL (8.5-10.1); Creatinine, Blood 1.42 mg/dL (0.60-1.20); Globulin, Blood 3.4 g/dL (2.2-4.0); Potassium, Blood 3.2 mmol/L (3.5-5.5); Total Protein, Blood 6.3 g/dL (6.4-8.2)
--- NOTE | 2024-02-20 06:42 | NUR ---
T/F AND SUMMARY: REPORT RECEIVED FROM EDMUNDO (TELEVISION REPAIRMAN) AND PT T/F TO ROOM 349 VIA [employer] AT 2155. HE'S VERY DROWSY BUT WAKEFUL TO VOICE AND USES SUCCINCT WORDS TO ANSWER YES/NO Q'S. PT IS SLOW TO RESPOND AND ABLE TO SPECIFY SOME NEEDS BUT SEEMS PREDOMINANTLY CONFUSED OTHER THAN SELF. HE FALLS BACK TO SLEEP QUICKLY AND IS PROBABLE ASPIRATION RISK D/T AMS, DECREASED LOC AND SOME DIFFICULTY FOLLOWING INSTRUCTION. HE ATTEMPTS TO HELP W/REPOSITIONING BUT IS STIFF AND RIGID W/TURNING. PT ON BEDREST W/BED ALARM ON FOR FALL RISK. PRESSURE SORE OBSERVED TO COCCYX THAT APPEARS TO BE OLDER AND IN VARIOUS STAGES OF HEALING. SEE PHOTOS FOR DETAILS. CLEANSED W/SKINTEGRITY AND MEPILEX APPLIED. TURN SCHEDULE MAINTAINED. GROIN AND LISA AREA ARE RED AND RASHY W/CONDOM CATH PLACED AND CREAM APPLIED FOR INCONTINENCE AND SBD PREVENTION FROM MOISTURE. HE HASN'T VOIDED IN LAST 5-6 HOURS BUT PT DENIED NEED THIS AM, BLADDER SCAN SHOWED 218 MLS. MADE AWARE AT 0620 AND ALSO WAS ALERTED TO PT'S HOME CARDIAC MEDS IN PRESENCE OF S.ZIGYG-NSR T/O NOCTE W/HR AVERAGING 50'S BPM, OCC LOW 39-45 BPM. NO NEW ORDERS RECEIVED BUT MD WAS GOING TO REVIEW PT'S CHART. KRIDER WAS PROVIDED AND CONTINUOUS NS IS INFUSING. PT REFUSED FLU VAC AT THIS TIME. NO ACUTE CHANGES, VSS/AFEBRILE. WCTM CLOSELY AND MEDICATE PER EMAR.
[2024-02-20 07:25] VITALS: BP 172/82
[2024-02-20] MEDS ORDERED: Potassium Chl 20MEQ/Water100ML 100 ML IV SCH (07:50)
[2024-02-20] MEDS ORDERED: Enoxaparin 40 MG/0.4 ML SYR SC SCH (09:00)
[2024-02-20] MEDS ORDERED: CefTRIAXone Sodium 1,000 MG in NS 100 ML IV SCH (09:00)
[2024-02-20 16:07] VITALS: BP 197/112
[2024-02-20 16:10] VITALS: BP 219/113
--- NOTE | 2024-02-20 16:37 | NUR ---
dr. medina notified of htn. meds reconciled with shyann. dr. medina will update orders.
[2024-02-20] MEDS ORDERED: HydrALAZINE HCl 20 MG / ML 1ML Vial IV PRN (16:40)
[2024-02-20] MEDS ORDERED: AmLODIPine Besylate 5 MG Tab PO SCH (17:00)
--- NOTE | 2024-02-20 17:29 | NUR ---
PATIENT A/O X 3. PATIENT HAS BEEN UP IN CHAIR OFF AND ON ALL DAY. PATIENT HAS BEEN AT BEDSIDE HALF THE DAY. PATIENT LIVES AT ASSISTED [facility]. PATIENT HAS WOUND ON HIS BUTTOCKS, WOUND IS ESCORATED PICTURES LOCATED IN CHART. PATIENT HAS CONDOM CATH IN PLACE AND HAS NOTED DARK YELLOW URINE IN BAG. PATIENT DID HAVE AN EMESIS AND WAS GIVEN ZOFRAN AND NOTED INCREASE BP OF 219/113 NORVAC GIVEN PO. PATIENT REFUSED LUNCH TODAY STATING HE WAS FULL. PATIENT REQUIRSE ASSISTANCE OF 1 WITH WALKER.
[2024-02-20 18:59] VITALS: BP 149/88
[2024-02-20 19:26] VITALS: BP 149/86
[2024-02-20] MEDS ORDERED: Metoprolol Tartrate 50 MG Tab PO SCH (21:00)
[2024-02-20] MEDS ORDERED: Arginine/Glutamine/Calcium Hmb 1 Packet PO SCH (21:00)
[2024-02-21 01:21] LABS: C DIFFICILE DNA NEGATIVE (Negative)
[2024-02-21] MEDS ORDERED: ASPI81CH PO (02:52)
[2024-02-21] MEDS ORDERED: BISA10S PR (02:54)
[2024-02-21] MEDS ORDERED: LOPE2C PO (02:55)
[2024-02-21] MEDS ORDERED: MELATONIN5 M1 PO (02:55)
[2024-02-21] MEDS ORDERED: DULCOLAX400 MG/5 M PO (03:04)
[2024-02-21] MEDS ORDERED: CARBOXYMETHYLCE BOTHEYES (03:08)
[2024-02-21] MEDS ORDERED: ARTIFICIAL TEAR15 M2 BOTHEYES (03:10)
[2024-02-21] MEDS ORDERED: B-12500 MC2 PO (03:11)
[2024-02-21 04:38] VITALS: BP 146/83
--- NOTE | 2024-02-21 05:34 | NUR ---
SUMMARY: PT A/OX3-4, IS PLEASANT AND COOPERATIVE W/CARE AND IS ABLE TO SPECIFY NEEDS W/STAFF IN ROOM. MENTATION AND STRENGTH CONT'S TO GRADUALLY IMPROVE AND PT MORE ALERT THAN PREVIOUS NOCTE. HE'S DENIED NAUSEA AND PAIN TONIGHT BUT LOOSE STOOL PERSISTS DEPSITE FREQUENCY IMPROVING. STOOL SPECIMEN WAS OBTAINED PER ORDERS AND PT WAS C.DIFF(-) SO GI PANEL WILL BE PERFORMED W/PRN IMMODIUM RX'D. NS IS INFUSING AT 100 ML/HR AND IV ABX ARE BEING RECEIVED PER EMAR. CONDOM CATH REMAINS INTACT AND DRAINING FOR INCONTINENCE AND SBD PREVENTION. TURN SCHEDULE MAINTAINED AND MEPILEX DX REPLACED TO COCCYX SORE. EXT'S FLOATED AND HEEL PROTECTORS IN PLACE. WAS PROVIDED UPDATE AND SHE INFORMED STAFF OF FACILITY WIDE UNKNOWN "OUTBREAK" AT [facility] CAUSING MANY RESIDENT AND STAFF ILLNESS. HE'S NSR ON TELE AT 50'S-70'S BPM. VSS/AFEBRILE, NO ACUTE CHANGES. WCTM AND REPORT TO DAY RN.
[2024-02-21] MEDS ORDERED: Loperamide HCl 2 MG Cap PO PRN (06:05)
[2024-02-21 06:41] LABS: Hematocrit 42.8 % (37.0-53.0); Hemoglobin 14.3 g/dL (13.5-17.5); Mean Corpuscular HGB Conc 33.4 g/dL (31.5-36.5); Mean Corpuscular Volume 90 fL (80-100); Mean Platelet Volume 11.1 fL (9.1-12.4); Platelet Count 149 K/mm3 (150-400); RDW Standard Deviation 45.7 fL (35.1-46.3); Red Blood Cell Count 4.77 M/mm3 (4.30-5.90); White Blood Cell Count 7.06 K/mm3 (4.00-11.30)
[2024-02-21 07:12] LABS: Magnesium, Blood 1.6 mg/dL (1.6-2.4); Thyroxine (T4) 4.3 ug/dL (4.5-12.1)
[2024-02-21 07:13] LABS: Albumin, Blood 2.5 g/dL (3.4-5.0); Anion Gap 9 mmol/L (3-11); Blood Urea Nitrogen 17 mg/dL (8-24); Bun/Creatinine Ratio 15.2 (12.0-20.0); CO2, Blood 23 mmol/L (21-32); Chloride, Blood 115 mmol/L (98-108); Creatinine, Blood 1.12 mg/dL (0.60-1.20); Glomerular Filtration Rate 66 (60-); Glucose, Blood 101 mg/dL (70-99); Phosphorus, Blood 2.6 mg/dL (2.5-4.9); Potassium, Blood 3.1 mmol/L (3.5-5.5); Sodium, Blood 144 mmol/L (136-145)
[2024-02-21 07:44] VITALS: BP 143/77
[2024-02-21] MEDS ORDERED: Levothyroxine Sodium 0.175 MG TAB PO SCH (08:12)
[2024-02-21] MEDS ORDERED: Tamsulosin HCl 0.4 MG Cap PO SCH (09:00)
[2024-02-21] MEDS ORDERED: Finasteride 5 MG Tab PO SCH (09:00)
[2024-02-21] MEDS ORDERED: Furosemide 20 MG Tab PO SCH (09:00)
[2024-02-21 15:20] VITALS: BP 131/75
--- NOTE | 2024-02-21 17:09 | NUR ---
PATIENT A/0 X 3. PATIENT HAS BEEN UP IN CHAIR TODAY AND COMPRESSION SOCKS APPLIED BI-LATERAL. IV INFILTRATED AND HAD A NEW IV RESTART IN RIGHT ARM WITH 22G CATH. PATIENT TOLERATED PROCEDURE WELL. NEW WOUND CARE ORDERS WERE PLACED FOR BUTTOCKS AREA. WOUND CARE WAS PREFORMED AREA WAS NOTED TO BE STAGE 2 AND ESCORATED AREAS. WOUND WAS CLEANSED WITH WOUND CLEANSER ON RIGHT AND LEFT BUTTOCKS, PAT DRY, XEROFORM WAS APPIED TO WOUND AREA DN COVERED WITH MEPILEX BANDAGE. PATIENT TOLERATED PROCEDURE WELL WITH NO ISSUES. PATIENT HAS BEEN AT BEDSIDE WITH PATIENT. PATIENT HAS HAD DIARRHEA TODAY AND USES BESIDE COMMODE AND USES CALL LIGHT TO ASK FOR ASSISTANCE. PATIENT ATE BREAKFAST HOWEVER DID NOT WANT LUNCH STATING "HE WAS NOT HUNGRY". PATIENT WAS PLACED BACK IN BED AND IS SLEEPING COMFORTABLY WITH NO ISSUES.
[2024-02-21 19:56] VITALS: BP 153/88
[2024-02-21] MEDS ORDERED: Metoprolol Tartrate 50 MG Tab PO SCH (21:00)
[2024-02-22 04:31] VITALS: BP 143/80
--- NOTE | 2024-02-22 04:44 | NUR ---
SHIFT SUMMARY PT ALERT ORIENTED WITH CONFUSION AT TIMES. DID ATTEMPT TO GET OUT OF BED BY HIMSELF THIS SHIFT BUT WAS EASILY REDIRECTED. REMAINS WITH A CONDOM CATH IN PLACE DRAINING YELLOW URINE. IV TO RT UPPER ARM WITH NS AT 100. REMAINS ON ZOSYN Q6HR. VSS SATTING AT 94%. NO LOOSE STOOLS THIS SHIFT. REMAINS ON TELEMETRY AT SINUS ZIGGY AT A RATE OF 51. HAS A WOUND TO HIS COCCYX. IS RESTING IN BED AT THIS TIME
[2024-02-22 05:41] LABS: BASOPHILS ABSOLUTE AUTO 0.03 K/mm3 (0.00-0.23); BASOPHILS PERCENT AUTO 1 % (0-2); EOSINOPHILS ABSOLUTE AUTO 0.16 K/mm3 (0.00-0.68); EOSINOPHILS PERCENT AUTO 3 % (0-6); Hematocrit 40.6 % (37.0-53.0); Hemoglobin 13.7 g/dL (13.5-17.5); IMMATURE GRAN ABSOLUTE AUTO 0.01 K/mm3 (0.00-0.10); IMMATURE GRAN PERCENT AUTO 0 % (0-1); LYMPHOCYTES ABSOLUTE AUTO 2.09 K/mm3 (0.84-5.20); LYMPHOCYTES PERCENT AUTO 33 % (21-46); MONOCYTES ABSOLUTE AUTO 0.57 K/mm3 (0.16-1.47); MONOCYTES PERCENT AUTO 9 % (4-13); Mean Corpuscular HGB Conc 33.7 g/dL (31.5-36.5); Mean Corpuscular Volume 89 fL (80-100); Mean Platelet Volume 11.1 fL (9.1-12.4); NEUTROPHILS ABSOLUTE AUTO 3.49 K/mm3 (1.96-9.15); NEUTROPHILS PERCENT AUTO 55 % (41-73); Platelet Count 150 K/mm3 (150-400); RDW Coefficient Variation 13.8 % (11.7-14.2); Red Blood Cell Count 4.56 M/mm3 (4.30-5.90); White Blood Cell Count 6.35 K/mm3 (4.00-11.30)
[2024-02-22 06:12] LABS: Albumin, Blood 2.6 g/dL (3.4-5.0); Albumin/Globulin Ratio 0.9 (0.8-1.8); Bilirubin, Total 0.5 mg/dL (0.1-1.0); Bun/Creatinine Ratio 14.8 (12.0-20.0); Calcium, Blood 8.1 mg/dL (8.5-10.1); Creatinine, Blood 1.28 mg/dL (0.60-1.20); Globulin, Blood 2.9 g/dL (2.2-4.0); Potassium, Blood 2.8 mmol/L (3.5-5.5); Total Protein, Blood 5.5 g/dL (6.4-8.2)
[2024-02-22 07:47] VITALS: BP 141/76
[2024-02-22] MEDS ORDERED: Cephalexin Monohydrate 500 MG Cap PO SCH (09:00)
[2024-02-22] MEDS ORDERED: CEPH500 PO (11:59)
[2024-02-22] MEDS ORDERED: Potassium Chloride 20 MEQ TabCR PO SCH ×2 (12:05→17:00)
--- NOTE | 2024-02-22 17:48 | NUR ---
DISCHARGE NOTE PT DISCHARGED HOME AT 1730. PT A&OX3, VSS, AMB W/ ASSIST, TOLERATING PO, VOIDING, AND DENIED PAIN. PT AND FAMILY PROVIDED W/ VERBAL AND WRITTEN INSTRUCTIONS AND REPORTED UNDERSTANDING. BELONGINGS WERE RETURNED. PT ESCOURTED OUT VIA W/C BY CORAL VILLALPANDO.
== END 2024-02-22 17:39 | disposition home health service (06) ==
LOC: ER 13:25 → MEDS 13:26 → ENPENDDIS 02-22 11:49 → MEDS 02-22 17:39
PROVIDERS: Emergency Medicine; Hospitalist; Internal Medicine; Nurse Practitioner Acute Care; ADMIT Student in an Organized Health Care Education/Training Program
DX: N39.0 Urinary tract infection, site not specified (principal); G92.8 Other toxic encephalopathy; E87.6 Hypokalemia; I10 Essential (primary) hypertension; C64.2 Malignant neoplasm of left kidney, except renal pelvis; C64.1 Malignant neoplasm of right kidney, except renal pelvis; R54 Age-related physical debility; E03.9 Hypothyroidism, unspecified; Z79.899 Other long term (current) drug therapy; Z86.73 Personal history of transient ischemic attack (TIA), and cerebral infarction without residual deficits; Z88.2 Allergy status to sulfonamides; Z88.8 Allergy status to other drugs, medicaments and biological substances
CPT/HCPCS: 0241U; 36415; 70450; 71045; 80053; 80069; 81001; 82140; 83605; 83735; 84436; 84443; 85025; 85027; 87040; 87086; 87493; 93005; 93010; 94760; 96361; 96365; 96366; 96367; 96372; 96375; 96376; 97110; 97116; 97162; 97530; 99285-25; A9270; G0378; J0360; J1650; J2405; J2543; J3480; J7030

== ENCOUNTER → 2024-03-06 | Outpatient (CLI) | payer MEDICARE, OTHER ==
[~2024-03-06] MED LIST changes: +ARTIFICIAL TEAR15 M2 BOTHEYES; +B-12500 MC2 PO; +BISA10S PR; +CARBOXYMETHYLCE BOTHEYES; +DULCOLAX400 MG/5 M PO; +FINA5 PO; +FURO20 PO; +HYDRA25 PO; +LOPE2C PO; +MELATONIN5 M1 PO; +METO50 PO
[2024-03-06 12:12] LABS: Source, Urine Clean Catch
[2024-03-06 13:53] LABS: Appearance, Urine Clear (Clear); Bilirubin, Urine Neg (Neg); Blood, Urine Neg (Neg); Color, Urine Yellow (P-Yellow); Glucose Qualitative, Urine Neg (Neg); Ketones, Urine Neg (Neg); Leukocyte Esterase, Urine Neg (Neg); Nitrite, Urine Neg (Neg); Protein, Urine 1+ (Neg); Urobilinogen, Urine NORM (Normal)
[2024-03-06 14:25] LABS: Bun/Creatinine Ratio 19.7 (12.0-20.0); Calcium, Blood 8.8 mg/dL (8.5-10.1); Creatinine, Blood 1.17 mg/dL (0.60-1.20); Potassium, Blood 3.8 mmol/L (3.5-5.5)
== END ==
LOC: LAB 11:00 → LAB SHORT 11:00
PROVIDERS: Internal Medicine
DX: N39.0 Urinary tract infection, site not specified (principal); I10 Essential (primary) hypertension
CPT/HCPCS: 80048

== ENCOUNTER → 2024-03-07 | Outpatient (CLI) | payer MEDICARE, OTHER | LOC: LAB 10:17 → LAB SHORT 10:17 | DX: R35.0 Frequency of micturition (principal) | CPT/HCPCS: 87086 ==

== ENCOUNTER 2025-02-01 23:47 | Observation (INO) | payer MEDICARE, OTHER ==
[~2025-02-01] VITALS: Ht 182.9 cm; Wt 107.2 kg
[2025-02-02 00:14] LABS: BASOPHILS ABSOLUTE AUTO 0.04 K/mm3 (0.00-0.23); BASOPHILS PERCENT AUTO 1 % (0-2); EOSINOPHILS ABSOLUTE AUTO 0.42 K/mm3 (0.00-0.68); EOSINOPHILS PERCENT AUTO 5 % (0-6); Hematocrit 39.2 % (37.0-53.0); Hemoglobin 12.9 g/dL (13.5-17.5); IMMATURE GRAN ABSOLUTE AUTO 0.02 K/mm3 (0.00-0.10); IMMATURE GRAN PERCENT AUTO 0 % (0-1); LYMPHOCYTES ABSOLUTE AUTO 2.09 K/mm3 (0.84-5.20); LYMPHOCYTES PERCENT AUTO 25 % (21-46); MONOCYTES ABSOLUTE AUTO 0.79 K/mm3 (0.16-1.47); MONOCYTES PERCENT AUTO 9 % (4-13); Mean Corpuscular HGB Conc 32.9 g/dL (31.5-36.5); Mean Corpuscular Volume 90 fL (80-100); NEUTROPHILS ABSOLUTE AUTO 5.08 K/mm3 (1.96-9.15); NEUTROPHILS PERCENT AUTO 60 % (41-73); NRBC ABSOLUTE 0.00 K/mm3 (0.00-0.02); NRBC Auto 0.0 /100 WBC (0.0-0.2); Platelet Count 177 K/mm3 (150-400); RDW Coefficient Variation 13.3 % (11.7-14.2); RDW Standard Deviation 44.1 fL (35.1-46.3)
[2025-02-02 00:24] LABS: Prothrombin Time Results 11.4 Sec (9.7-11.5)
[2025-02-02 00:27] LABS: Alanine Aminotransfer (ALT/SGP 27.0 U/L (12-78); Albumin, Blood 2.9 g/dL (3.4-5.0); Albumin/Globulin Ratio 0.8 (0.8-1.8); Anion Gap 8.0 mmol/L (3-11); Aspartate Aminotrans (AST/SGOT 22.0 U/L (12-37); Bilirubin, Total 0.4 mg/dL (0.1-1.0); Blood Urea Nitrogen 25.0 mg/dL (8-24); CO2, Blood 25.0 mmol/L (21-32); Calcium, Blood 8.8 mg/dL (8.5-10.1); Chloride, Blood 109.0 mmol/L (98-108); Creatinine, Blood 1.17 mg/dL (0.60-1.20); Globulin, Blood 3.5 g/dL (2.2-4.0); Glucose, Blood 101.0 mg/dL (70-99); Magnesium, Blood 2.1 mg/dL (1.6-2.4); Potassium, Blood 3.6 mmol/L (3.5-5.5); Sodium, Blood 138.0 mmol/L (136-145); Total Protein, Blood 6.4 g/dL (6.4-8.2)
[2025-02-02] MEDS ORDERED: FLU VACC TS2025(65UP)/MF59C/PF 45 MCG/0.5 ML SYRINGE IM SCH (02:20)
[2025-02-02 04:17] VITALS: BP 171/78
[2025-02-02 05:23] LABS: BASOPHILS ABSOLUTE AUTO 0.07 K/mm3 (0.00-0.23); BASOPHILS PERCENT AUTO 1 % (0-2); EOSINOPHILS ABSOLUTE AUTO 0.38 K/mm3 (0.00-0.68); EOSINOPHILS PERCENT AUTO 5 % (0-6); Hematocrit 40.7 % (37.0-53.0); Hemoglobin 13.2 g/dL (13.5-17.5); IMMATURE GRAN ABSOLUTE AUTO 0.02 K/mm3 (0.00-0.10); IMMATURE GRAN PERCENT AUTO 0 % (0-1); LYMPHOCYTES ABSOLUTE AUTO 1.68 K/mm3 (0.84-5.20); LYMPHOCYTES PERCENT AUTO 24 % (21-46); MONOCYTES ABSOLUTE AUTO 0.65 K/mm3 (0.16-1.47); MONOCYTES PERCENT AUTO 9 % (4-13); Mean Corpuscular HGB Conc 32.4 g/dL (31.5-36.5); Mean Corpuscular Volume 90 fL (80-100); NEUTROPHILS ABSOLUTE AUTO 4.30 K/mm3 (1.96-9.15); NEUTROPHILS PERCENT AUTO 60 % (41-73); NRBC ABSOLUTE 0.00 K/mm3 (0.00-0.02); NRBC Auto 0.0 /100 WBC (0.0-0.2); Platelet Count 151 K/mm3 (150-400); RDW Coefficient Variation 13.2 % (11.7-14.2); RDW Standard Deviation 43.6 fL (35.1-46.3)
[2025-02-02 06:10] LABS: Alanine Aminotransfer (ALT/SGP 25 U/L (12-78); Albumin, Blood 2.8 g/dL (3.4-5.0); Albumin/Globulin Ratio 0.9 (0.8-1.8); Anion Gap 8 mmol/L (3-11); Aspartate Aminotrans (AST/SGOT 22 U/L (12-37); Bilirubin, Total 0.4 mg/dL (0.1-1.0); Blood Urea Nitrogen 25 mg/dL (8-24); CHOL/HDL RATIO 2.8; CO2, Blood 25 mmol/L (21-32); Calcium, Blood 8.7 mg/dL (8.5-10.1); Chloride, Blood 108 mmol/L (98-108); Cholesterol 115 mg/dL (50-200); Creatinine, Blood 1.18 mg/dL (0.60-1.20); Globulin, Blood 3.2 g/dL (2.2-4.0); Glucose, Blood 94 mg/dL (70-99); HDL Cholesterol 41 mg/dL (>39); LDL/HDL RATIO 1.4; Low Density Lipoprotein Chol 58 mg/dL (0-110); Magnesium, Blood 2.0 mg/dL (1.6-2.4); Potassium, Blood 3.6 mmol/L (3.5-5.5); Sodium, Blood 137 mmol/L (136-145); Thyroid Stimulating Hormone 0.747 uIU/mL (0.360-4.800); Total Protein, Blood 6.0 g/dL (6.4-8.2); Triglycerides 80 mg/dL (30-160); Very Low Density Lipoprot Chol 16 mg/dL (6-32)
[2025-02-02 07:32] VITALS: BP 184/89
--- NOTE | 2025-02-02 08:04 | NUR ---
ADMIT NOTE/FITNESS DIRECTOR SUMMARY PT A&OX2, VSS, EXCEPT HTN. ADMITTED FROM ED TODAY FOR CVA. ORIENTED TO CALL LIGHT, ROOM, FALL/SAFETY PRECAUTIONS. UNABLE TO COMPLETE ADMISSION HX, MED REC, AND ALLERGIES D/T LIMITED HX FAMILY COULD PROVIDE AND PT HAVING INTERMITTENT CONFUSION. FAMILY ALSO STATES PT HAS ALZHEIMER'S AND DEMENTIA. THOUGH, NOT SEEN LISTED ON H&P. FAMILY ALSO DID NOT HAVE MED LIST. AM RN NOTIFIED. PT'S SON SAID HE WAS PT'S POA. NOT FOUND ON CHART. PT'S SON STATED HE WILL BRING IN PAPERWORK. BEDSIDE SWALLOW SCREEN COMPLETED AND PASSED. REMAINS ON Q4 NEURO CHECKS. LAST NIHSS UNCHANGED AT 4. ED REPORTED BLADDER SCAN CLOSE TO 400. AUTHOR TOLD AND CONFIRMED FAMILY DID NOT WANT KAUR PLACED IN ED. PT TRANSFERED TO UNIT AND HAD INCONT EPISODE. REPEAT BLADDER SCAN DONE. 296. PT SUBSEQUENTLY ABLE TO VOID CLOSE TO 300 W/ REASSRANCE AT BEDSIDE. PT WAS ALSO FOUND TO HAVE STAGE II PRESSURE ULCER. PT'S STATED SHE HAS BEEN TREATING IT FOR MONTHS NOW. STATED WOUND USED TO BE BLACK AND REFUSED MEPILEX TO BE PLACED ON WOUND. VOICED UNDERSTANDING ON MEPILEX AND WOULD LIKE WOUND TO BE LEFT CMM INSPECTOR W/ BARRIER CREAM APPLIED. PROVIDER NOTIFIED. PICS PLACED IN CHART. REMAINS ON TELE. SB AT 57. IV IN [facility] WN. MRI FORM NOT YET AVAILABLE AT TIME OF ADMISSION. PT'S FAMILY WOULD LIKE TO BE CALLED FOR INFORMATION NEEDED TO FILL OUT FORM. AM RN NOTIFIED. BED RAILS UP X 2, BED IN LOWEST POSITION, BED WHEELS LOCKED, BED ALARM ON, MALE PUREWICK IN PLACE DRAINING TO SUCTION, PERSONAL BELONGINGS AND CALL LIGHT WITHIN REACH FOR SAFETY.
[2025-02-02 14:59] VITALS: BP 141/74
[2025-02-02] MEDS ORDERED: CLOP75 PO (17:31)
--- NOTE | 2025-02-02 18:05 | NUR ---
PT IS DISCHARGED TO HOME WITH HOME HEALTH. DISCHARGE INSTRUCTIONS PROVIDED AND EDUCATED ON AT TIME OF DISCHARGE. ALL VALUABLES RETURNED AND SENT HOME WITH THE PT.
[2025-02-03] MEDS ORDERED: Levothyroxine Sodium 0.175 MG TAB PO SCH (06:00)
== END 2025-02-02 18:10 | disposition home health service (06) ==
LOC: ER 23:47 → MEDS 23:48
PROVIDERS: Student in an Organized Health Care Education/Training Program; ADMIT Student in an Organized Health Care Education/Training Program
DX: R53.1 Weakness (principal); R47.9 Unspecified speech disturbances; R40.4 Transient alteration of awareness; R07.9 Chest pain, unspecified; I65.1 Occlusion and stenosis of basilar artery; I65.03 Occlusion and stenosis of bilateral vertebral arteries; I35.0 Nonrheumatic aortic (valve) stenosis; C64.1 Malignant neoplasm of right kidney, except renal pelvis; C64.2 Malignant neoplasm of left kidney, except renal pelvis; I10 Essential (primary) hypertension; E03.9 Hypothyroidism, unspecified; I69.351 Hemiplegia and hemiparesis following cerebral infarction affecting right dominant side; I69.392 Facial weakness following cerebral infarction; N40.0 Benign prostatic hyperplasia without lower urinary tract symptoms; Z79.82 Long term (current) use of aspirin; Z79.890 Hormone replacement therapy; Z79.899 Other long term (current) drug therapy; Z88.1 Allergy status to other antibiotic agents; Z88.2 Allergy status to sulfonamides; Z88.8 Allergy status to other drugs, medicaments and biological substances; Z91.048 Other nonmedicinal substance allergy status
CPT/HCPCS: 36415; 70450; 70496; 70498; 70551; 71275; 74174; 80053; 80061; 82947; 83036; 83735; 84443; 84484; 85025; 85610; 85730; 86850; 86900; 86901; 93005; 93010; 97116; 97162; 99285; A9270; G0378; Q9967

== ENCOUNTER 2025-03-22 14:25 | Emergency (ER) | payer MEDICARE, OTHER ==
[~2025-03-22] VITALS: Ht 177.8 cm; Wt 107.5 kg
[~2025-03-22 14:25] MED LIST changes: +CLOP75 PO
[2025-03-22 15:12] LABS: BASOPHILS ABSOLUTE AUTO 0.06 K/mm3 (0.00-0.23); BASOPHILS PERCENT AUTO 1 % (0-2); EOSINOPHILS ABSOLUTE AUTO 0.34 K/mm3 (0.00-0.68); EOSINOPHILS PERCENT AUTO 3 % (0-6); Hematocrit 46.9 % (37.0-53.0); Hemoglobin 15.4 g/dL (13.5-17.5); IMMATURE GRAN ABSOLUTE AUTO 0.02 K/mm3 (0.00-0.10); IMMATURE GRAN PERCENT AUTO 0 % (0-1); LYMPHOCYTES ABSOLUTE AUTO 2.13 K/mm3 (0.84-5.20); LYMPHOCYTES PERCENT AUTO 21 % (21-46); MONOCYTES ABSOLUTE AUTO 0.68 K/mm3 (0.16-1.47); MONOCYTES PERCENT AUTO 7 % (4-13); Mean Corpuscular HGB Conc 32.8 g/dL (31.5-36.5); Mean Corpuscular Volume 90 fL (80-100); NEUTROPHILS ABSOLUTE AUTO 6.84 K/mm3 (1.96-9.15); NEUTROPHILS PERCENT AUTO 68 % (41-73); NRBC ABSOLUTE 0.00 K/mm3 (0.00-0.02); NRBC Auto 0.0 /100 WBC (0.0-0.2); Platelet Count 200 K/mm3 (150-400); RDW Coefficient Variation 13.7 % (11.7-14.2); RDW Standard Deviation 44.8 fL (35.1-46.3)
[2025-03-22 15:41] LABS: Alanine Aminotransfer (ALT/SGP 35.0 U/L (12-78); Albumin, Blood 3.3 g/dL (3.4-5.0); Albumin/Globulin Ratio 0.8 (0.8-1.8); Anion Gap 8.0 mmol/L (3-11); Aspartate Aminotrans (AST/SGOT 27.0 U/L (12-37); Bilirubin, Total 0.5 mg/dL (0.1-1.0); Blood Urea Nitrogen 36.0 mg/dL (8-24); CO2, Blood 29.0 mmol/L (21-32); Calcium, Blood 9.1 mg/dL (8.5-10.1); Chloride, Blood 107.0 mmol/L (98-108); Creatinine, Blood 1.46 mg/dL (0.60-1.20); Globulin, Blood 3.9 g/dL (2.2-4.0); Glucose, Blood 149.0 mg/dL (70-99); Magnesium, Blood 2.1 mg/dL (1.6-2.4); Potassium, Blood 3.6 mmol/L (3.5-5.5); Sodium, Blood 140.0 mmol/L (136-145); Total Protein, Blood 7.2 g/dL (6.4-8.2)
[2025-03-22 21:40] VITALS: BP 121/75
== END 2025-03-22 21:42 | disposition home or self-care (01) ==
LOC: ER 14:25
PROVIDERS: Emergency Medicine
DX: I35.0 Nonrheumatic aortic (valve) stenosis (principal); R06.02 Shortness of breath; I10 Essential (primary) hypertension; Z86.73 Personal history of transient ischemic attack (TIA), and cerebral infarction without residual deficits; Z79.82 Long term (current) use of aspirin; Z79.899 Other long term (current) drug therapy; Z79.01 Long term (current) use of anticoagulants; Z88.1 Allergy status to other antibiotic agents; Z91.048 Other nonmedicinal substance allergy status; Z88.8 Allergy status to other drugs, medicaments and biological substances
CPT/HCPCS: 71046; 80053; 83735; 83880; 84484; 85025; 99285-25